=== PATIENT | male | born 1960 | race Caucasian/White ===

== ENCOUNTER 2017-08-23 06:15 | Inpatient (IN) | payer MEDICARE ==
[2017-08-23] VITALS (31 sets, daily range): BP systolic 91–143; BP diastolic 51–95; BMI 33.7
[~2017-08-23] VITALS: Ht 180.3 cm; Wt 109.3 kg
--- NOTE | ~2017-08-23 | HP ---
PATIENT: SONIA CEDEÑO MEDICAL RECORD: [id number] ACCOUNT: [id number] LOCATION:[facility] D231 : 64 ADMISSION DATE: 08/23/17 HISTORY AND PHYSICAL EXAMINATION HISTORY OF PRESENT ILLNESS: This 57-year-old gentleman was transferred in for the transfer service from [place] in [place] for evaluation of renal failure and hypotension. The patient was given IV fluids and started on a dopamine drip. He was transferred to our Emergency Room, stabilization was obtained by the ER physician and admitted to the ICU. Nephrology has been consulted and their recommendations are being followed. PAST MEDICAL HISTORY: Significant for hypertension, GERD, chronic joint pain, depression, arrhythmia, coronary artery disease, hyperlipidemia, chronic back pain, peptic ulcer disease, kidney stones, migraine headaches. ALLERGIES: THE PATIENT IS ALLERGIC TO ASPIRIN. MEDICATIONS: Include Advil, Zoloft, Carafate, and Zantac. SOCIAL HISTORY: The patient does smoke 1-1/2 packs per day. No alcohol use. REVIEW OF SYSTEMS: Indicate the patient has had increasing amount of insect stings from fleas and bed bugs at home. He surgically has had a pacemaker placed and also hernia surgery. No fever or chills. He has had decreased urine output. He has had decrease in blood pressure recently. PHYSICAL EXAMINATION: VITAL SIGNS: At the time of history and physical as below. GENERAL: He is a well-developed, well-nourished 57-year-old obese white male that is sleeping and snoring, able to be aroused, in no acute distress. HEENT: Normocephalic, atraumatic. Pupils are equal, round, reactive to light. Extraocular movements are intact. Oral cavity, oropharynx is clear. Tacky mucous membranes are noted. NECK: No cervical or pharyngeal adenopathy. No nuchal rigidity. LUNGS: Coarse breath sounds heard bilaterally. HEART: Regular rate and rhythm with a I/ systolic ejection murmur. ABDOMEN: Soft, nontender, obese. Positive bowel sounds. No hepatosplenomegaly, no masses. EXTREMITIES: Multiple insect stings, excoriations, and superficial infection is noted. He does have a surgical scar in his left shoulder from pacemaker placement and palpation of the pacemaker is noted. Extremities, no other edema is noted. NEUROLOGIC: He is able to move all 4 extremities and sensation is intact. LABORATORY DATA: Review of his laboratory shows a white count of 14,000, H&H 12 and 39, platelets 175. He has got mildly elevated potassium of 5.1, BUN of 80, and creatinine of 6.2. No previous ones are available. Calcium is low at 8.4, phosphorus is high at 6.9. Magnesium is high at 2.9, proBNP is 492, LDL of 103. EKG shows normal sinus rhythm with a very pronounced T-wave inversion. The patient has evidence of a 25-50 rbc's on urinalysis. ASSESSMENT: At this time: 1. Hypertension. 2. Acute renal failure. HISTORY AND PHYSICAL [id number] SONIA CEDEÑO 3. Insect stings. 4. Leukocytosis. 5. Arrhythmia. 6. Probable sleep apnea. 7. Nicotine dependence. 8. Hypertriglyceridemia. 9. Coronary artery disease. 10. Hematuria. 11. Depression. 12. Chronic pain. PLAN: The patient will be admitted to the ICU. Titrate dopamine and IV fluids as needed for blood pressure. Nephrology consultation and cardiology consultation. Check laboratory appropriately. IV antibiotics and wound care. We will also have the patient on infection control and monitor the patient's status. TRANSINT:[id number] Voice Confirmation ID: [id number] DOCUMENT ID: [id number] SANDRA JIMENEZ MD at 1558 CC: [id number] DICTATION DATE: 08/23/17 1142 PHYSICIAN PRIMARY C[facility] SPORTS MEDICINE: 08/23/17 1211 ADM IN [facility] [address] [place] [address]
--- NOTE | ~2017-08-23 | EC ---
PATIENT:SONIA CEDEÑO DATE OF SERVICE: 08/23/17 SEX: M MEDICAL RECORD: [id number] DATE OF : 64 LOCATION:[facility] D231 AGE OF PATIENT: 57 ADMISSION DATE: 08/23/17 REFERRING PHYSICIAN: INTERPRETING PHYSICIAN: DONNIE VAZQUEZ MD ECHOCARDIOGRAM REPORT ECHO CHARGES 4 ECHO COMPLETE Date: 08/23 CLINICAL DIAGNOSIS: PVC HX OF PACEMAKER ECHOCARDIOGRAPHIC MEASUREMENTS (adult normal given) AC root (d.<3.7cm) 3.7 cm LV Septum d (<1.2 cm> 1.5 cm Valve Excursion 1.5 cm LV Septum (systole) 1.8 cm Left Atria (s.<4.0cm> 3.5 cm LVPW d(<1.2cm) 1.5 cm RV (d.<2.3cm) 3.4 cm LVPW (sytole) 1.7 cm LV diastole(<5.6CM) 4.8 cm MV E-F(>70mm/sec) cm LV systole 3.1 cm LVOT Diameter 1.9 cm MV exc.(>10mm) cm Est.ejection fraction (50-75%) % DOPPLER: LVIT cm/sec A 111 cm/sec E 84.0 cm/sec LA cm/sec RVSP 50 mmHg LVOT 130 cm/sec AOP1/2T m/s Asc. Ao 197 cm/sec RVOT cm/sec RA cm/sec PA cm/sec AV Gradient Peak 15.45mmHg AV Mean 10.0 mmHg AV Area 0 cm MV Gradient Peak 1.7 mmHg MV Mean 4.67 mmHg MV Area 2.32 cm COMMENTS: [employer] Professor: Chris SÁNCHEZ Spindle Frame Carver: 1 Dr. Vazquez TAPE# PACS Pericardial Effusion N DATE OF SERVICE: 08/23/2017 PROCEDURE: Echocardiogram. FINDINGS: 1. Left ventricular chamber size is within normal limits. Left ventricular systolic function is normal. Overall ejection fraction estimated at 60%. 2. Left atrium, right atrium, and right ventricle chamber sizes are within normal limits. 3. Valvular structures have normal structure and motion. ECHOCARDIOGRAM REPORT [id number] SONIA CEDEÑO 4. Doppler interrogation reveals moderate tricuspid regurgitation, no other valvular insufficiency or stenosis. Pulmonary systolic pressure is elevated at 50 mmHg. 5. No evidence of pericardial effusion or left ventricular thrombus. TRANSINT:[id number] Voice Confirmation ID: [id number] DOCUMENT ID: [id number] DONNIE VAZQUEZ MD at 2002 CC: [id number] DICTATION DATE: 08/23/17 1634 CREDIT CHARGE AUTHORIZER: 08/23/17 1731 ADM IN [facility] [address] [place] [address]
--- NOTE | ~2017-08-23 | CN ---
PATIENT NAME:SONIA CEDEÑO MEDICAL RECORD: [id number] : 64 LOCATION:[id number] ADMIT DATE: 08/23/17 ACCOUNT: [id number] CONSULTING PHYSICIAN: DONNIE COFFEY MD REFERRING PHYSICIAN: SANDRA JIMENEZ MD DATE OF CONSULTATION: 08/23/2017 ADMITTING DIAGNOSES: 1. Acute renal failure. 2. Coronary artery disease. 3. Previous percutaneous transluminal coronary angioplasty stent. 4. Abnormal ECG, left bundle branch block. 5. Hypertension. HISTORY OF PRESENT ILLNESS: This is a gentleman who presents with fatigue and weakness, was found to be in acute renal failure with creatinine of 8.2. He has a cardiac history, previous cardiac stents, hypertension, and his EKG has a left bundle branch block. This is no change from previous EKGs. He is having no anginal symptomatology, no cardiac issues at this time. PHYSICAL EXAMINATION: GENERAL APPEARANCE: Well-nourished, well-developed, appears stated age. Level of distress, comfortable. PSYCHIATRIC: Mental status, alert, normal affect. Orientation, oriented to time, place and person. EYES: Lids and conjunctiva, noninjected. No discharge, no pallor. ENT: Lips, teeth, gums, normal dentition. Oropharynx, no cyanosis, no pallor. NECK: Carotid arteries, bilateral normal upstroke, no bruits, no thrills. JUGULAR VEINS: No jugular venous pressure or distention. CERVICAL LYMPH NODES: Nontender, nonenlarged. THYROID: Not enlarged. Nontender. No nodules. LUNGS: Respiratory effort, unlabored. CHEST: Normal curvature. No thoracic deformity. No chest wall tenderness. Percussion, resonant. Auscultation, clear. No wheezes, no rales, no rhonchi. CARDIOVASCULAR: Precordial exam, nondisplaced. No heaves or pericardial thrills. Rate and rhythm, regular. Heart sounds, normal S1, normal S2. No S3, no gallop, no rub. Systolic murmur, not heard. Diastolic murmur, not heard. EXTREMITIES: No cyanosis, no edema. Peripheral pulses, full and equal in all extremities, except as noted. No bruits appreciated. ABDOMEN: Soft, nondistended. Normal aorta. No bruit. Nontender. No masses. Liver, nontender, no hepatomegaly. Spleen, nontender, no splenomegaly. MUSCULOSKELETAL: No joint tenderness. No joint swelling. No erythema. NEUROLOGICAL: Normal gait, normal strength, normal tone. SKIN: Warm and dry. REVIEW OF SYSTEMS: The patient reports easy bruising but reports no swollen glands. The patient reports no fever, no night sweats, no significant weight gain, no significant weight loss. No significant exercise tolerance. The patient reports no dry eyes, no irritation, no vision change. Patient reports no difficulty hearing and no ear pain. Patient reports no frequent nose bleeds or nose and sinus problems. Patient reports on arm pain on exertion. No shortness of breath while lying down. No history of heart murmur. Patient reports no cough, no wheezing or coughing up blood. Patient reports no abdominal pain, no vomiting. Normal appetite. No diarrhea and not vomiting blood. No nausea and no constipation. Patient reports no incontinence. No CONSULT REPORT [id number] SONIA CEDEÑO difficulty urinating. No hematuria. No increased frequency. Patient reports no muscle aches. No weakness, no arthralgias, no back pain. No swelling of the extremities. Patient reports no abnormal mole, no jaundice, no rashes. Reports no loss of consciousness. No weakness and no numbness. No seizures, dizziness, or headaches. The patient reports no depression, no sleep disturbance, feeling safe in a relationship and no alcohol abuse. Patient reports on fatigue. Reports no runny nose or sinus pressure. No itching, no hives, and no frequent sneezing. OVERALL IMPRESSION: Coronary artery disease, stable. No ongoing symptomatology of ischemia. EKG is unchanged with a left bundle branch block. Echocardiogram was performed with normal ejection fraction, no critical valvular disease. At this time, no other cardiac workup or treatment is necessary. TRANSINT:[id number] Voice Confirmation ID: [id number] DOCUMENT ID: [id number] DONNIE COFFEY MD at 2002 CC: [id number] DICTATION DATE: 08/23/171726 PASTE MIXER LIQUID: 08/23/17 1804 [place] [address]
[2017-08-23] MEDS ORDERED: ADVIL200 MG PO (06:40)
[2017-08-23] MEDS ORDERED: ZOLOFT100 MG PO (06:40)
[2017-08-23] MEDS ORDERED: ZANTAC150 MG (06:41)
[2017-08-23] MEDS ORDERED: CARAFATE1 G PO (06:41)
[2017-08-23 07:56] LABS: APPEARANCE CLEAR (CLEAR); BILIRUBIN NEGATIVE (NEGATIVE); COLOR YELLOW (YELLOW); GLUCOSE NEGATIVE (NEGATIVE); KETONE NEGATIVE (NEGATIVE); NITRITE NEGATIVE (NEGATIVE); PROTEIN 1+ mg/dL (NEGATIVE); RED CELLS - URINE 25-50 /hpf (0-5); SPECIFIC GRAVITY 1.015 (1.005-1.020); UROBILINOGEN NORMAL (NORMAL)
[2017-08-23 07:57] LABS: BACTERIA FEW /hpf (NONE SEEN); WHITE CELLS - URINE 0-5 /hpf (0-5)
[2017-08-23 08:00] LABS: EPITHELIAL CELLS 0-5 /hpf (0-5); MUCUS <1+ /lpf (NONE SEEN)
[2017-08-23 08:03] LABS: HYALINE CAST 0-5 /lpf (NONE SEEN)
[2017-08-23 10:18] LABS: BASOPHILS 0.1 % (0-2); EOSINOPHILS 0.6 % (0-7); HEMATOCRIT 39.2 % (42.0-54.0); HEMOGLOBIN 12.8 g/dL (13.5-17.5); IMMATURE GRANULOCYTES 1.1 % (0-5); LYMPHOCYTES 6.1 % (15-50); MCH 31.4 pg (26.0-34.0); MCHC 32.7 g/dL (31.0-37.0); MCV 96.1 fL (80.0-100.0); MEAN PLATELET VOLUME 11.3 fL (7.4-10.4); MONOCYTES 9.6 % (2-11); NEUTROPHILS 82.5 % (40-80); PLATELET COUNT 175 10x3/uL (130-400); RBC 4.08 10x6/uL (4.20-6.10); RDW 13.2 % (11.5-14.5); WBC 14.3 10x3/uL (4.8-10.8)
[2017-08-23 10:32] LABS: COMPLEMENT C4 22.9 mg/dL (17.4-52.2)
[2017-08-23 10:35] LABS: LDL-HDL RATIO 4.9 ratio (1.5-3.5); MAGNESIUM - SERUM 2.9 mg/dL (1.8-2.4); PHOSPHOROUS 6.9 mg/dL (2.5-4.9)
[2017-08-23 10:36] LABS: ALBUMIN 3.3 g/dL (3.4-5.0); ANION GAP 23.7 mmol/L (8-16); BILIRUBIN - TOTAL 0.15 mg/dL (0.2-1.3); CALCIUM 8.4 mg/dL (8.5-10.1); CARBON DIOXIDE 13.4 mmol/L (21.0-32.0); CREATININE - SERUM 6.2 mg/dL (0.6-1.3); POTASSIUM - SERUM 5.1 mmol/L (3.5-5.1); PROTEIN - SERUM 6.7 g/dL (6.4-8.2)
[2017-08-23 11:54] LABS: UDS - AMPHET NEGATIVE QUAL (NEGATIVE); UDS - BARB NEGATIVE QUAL (NEGATIVE); UDS - BENZO NEGATIVE QUAL (NEGATIVE); UDS - COCAINE NEGATIVE QUAL (NEGATIVE); UDS - OPIATE NEGATIVE QUAL (NEGATIVE); UDS - PCP NEGATIVE QUAL (NEGATIVE); UDS - THC NEGATIVE QUAL (NEGATIVE)
[2017-08-23 19:28] LABS: CKMB 8.2 U/L (0.0-3.6); CREATINE KINASE 97 UL (21-232); TROPONIN-I < 0.017 ng/mL (0.000-0.060)
[2017-08-24] VITALS (30 sets, daily range): BP systolic 99–181; BP diastolic 60–851; Ht 180.3 cm; Wt 109.3 kg
[2017-08-24 05:15] LABS: BASOPHILS 0.1 % (0-2); EOSINOPHILS 0.7 % (0-7); HEMOGLOBIN 11.4 g/dL (13.5-17.5); IMMATURE GRANULOCYTES 0.6 % (0-5); LYMPHOCYTES 8.3 % (15-50); MCH 30.8 pg (26.0-34.0); MCHC 32.6 g/dL (31.0-37.0); MCV 94.6 fL (80.0-100.0); MEAN PLATELET VOLUME 11.4 fL (7.4-10.4); MONOCYTES 8.8 % (2-11); NEUTROPHILS 81.5 % (40-80); PLATELET COUNT 205 10x3/uL (130-400); RDW 13.2 % (11.5-14.5)
[2017-08-24 05:25] LABS: WBC 9.5 10x3/uL (4.8-10.8)
[2017-08-24 05:43] LABS: ALKALINE PHOSPHATASE 72 U/L (46-116); ALT (SGPT) 19 U/L (10-68); BILIRUBIN - TOTAL 0.17 mg/dL (0.2-1.3); CALCIUM 7.5 mg/dL (8.5-10.1); CHLORIDE - SERUM 114 mmol/L (98-107); CKMB 5.8 U/L (0.0-3.6); CREATINE KINASE 68 UL (21-232); GLUCOSE 114 mg/dL (74-106); MAGNESIUM - SERUM 2.2 mg/dL (1.8-2.4); PRO BNP 709 pg/mL (0-125); PROTEIN - SERUM 6.8 g/dL (6.4-8.2); SODIUM 147 mmol/L (136-145); THYROID STIMULATING HORMONE 0.17 uIU/mL (0.36-3.74); TROPONIN-I < 0.017 ng/mL (0.000-0.060)
[2017-08-24 05:46] LABS: CALC OSMOLALITY 308 mosm/kg (275-300); CARBON DIOXIDE 18.6 mmol/L (21.0-32.0); CREATININE - SERUM 2.8 mg/dL (0.6-1.3); PHOSPHOROUS 4.6 mg/dL (2.5-4.9); POTASSIUM - SERUM 3.6 mmol/L (3.5-5.1); UREA NITROGEN 56 mg/dL (7-18); eGFR NON AFRICAN AMERICAN 25 mL/min (90-120)
[2017-08-25] VITALS (12 sets, daily range): BP systolic 120–156; BP diastolic 59–112
[2017-08-25 06:27] LABS: BASOPHILS 0.2 % (0-2); EOSINOPHILS 0.8 % (0-7); HEMATOCRIT 34.3 % (42.0-54.0); HEMOGLOBIN 11.2 g/dL (13.5-17.5); IMMATURE GRANULOCYTES 0.3 % (0-5); LYMPHOCYTES 11.6 % (15-50); MCH 30.9 pg (26.0-34.0); MCHC 32.7 g/dL (31.0-37.0); MCV 94.8 fL (80.0-100.0); MEAN PLATELET VOLUME 10.5 fL (7.4-10.4); MONOCYTES 10.5 % (2-11); NEUTROPHILS 76.6 % (40-80); PLATELET COUNT 223 10x3/uL (130-400); RBC 3.62 10x6/uL (4.20-6.10); RDW 13.5 % (11.5-14.5); WBC 9.8 10x3/uL (4.8-10.8)
[2017-08-25 06:59] LABS: ALBUMIN 3.1 g/dL (3.4-5.0); ANION GAP 11.9 mmol/L (8-16); BILIRUBIN - TOTAL 0.24 mg/dL (0.2-1.3); CALCIUM 8.2 mg/dL (8.5-10.1); CARBON DIOXIDE 26.4 mmol/L (21.0-32.0); CREATININE - SERUM 1.5 mg/dL (0.6-1.3); POTASSIUM - SERUM 3.3 mmol/L (3.5-5.1); THYROID STIMULATING HORMONE 0.91 uIU/mL (0.36-3.74)
[2017-08-26 04:00] VITALS: BP 118/73
[2017-08-26 05:27] LABS: BASOPHILS 0.2 % (0-2); EOSINOPHILS 1.3 % (0-7); HEMATOCRIT 33.3 % (42.0-54.0); HEMOGLOBIN 11.1 g/dL (13.5-17.5); IMMATURE GRANULOCYTES 0.3 % (0-5); MCH 31.4 pg (26.0-34.0); MCHC 33.3 g/dL (31.0-37.0); MCV 94.3 fL (80.0-100.0); MEAN PLATELET VOLUME 10.6 fL (7.4-10.4); MONOCYTES 13.4 % (2-11); NEUTROPHILS 67.8 % (40-80); PLATELET COUNT 221 10x3/uL (130-400); RBC 3.53 10x6/uL (4.20-6.10); RDW 13.3 % (11.5-14.5); WBC 10.2 10x3/uL (4.8-10.8)
[2017-08-26 05:38] LABS: ANION GAP 15.4 mmol/L (8-16); CALCIUM 8.3 mg/dL (8.5-10.1); CARBON DIOXIDE 24.9 mmol/L (21.0-32.0); CREATININE - SERUM 1.2 mg/dL (0.6-1.3); POTASSIUM - SERUM 3.3 mmol/L (3.5-5.1)
[2017-08-26 08:10] VITALS: BP 145/71
[2017-08-26 11:31] VITALS: BP 144/84
[2017-08-26 12:11] LABS: ANA REFLEX - DBL STRANDED DNA <1 IU/mL (0-9); ANA REFLEX - DIRECT Negative (Negative)
[2017-08-26 15:57] VITALS: BP 138/77
[2017-08-26 16:13] LABS: SPE - A/G RATIO 1.1 (0.7-1.7); SPE - ALBUMIN 3.2 g/dL (2.9-4.4); SPE - ALPHA-1 GLOBULIN 0.3 g/dL (0.0-0.4); SPE - ALPHA-2 GLOBULIN 0.9 g/dL (0.4-1.0); SPE - BETA GLOBULIN 0.9 g/dL (0.7-1.3); SPE - M-SPIKE Not Observed g/dL (Not Observed); SPE - TOTAL PROTEIN 6.2 g/dL (6.0-8.5)
[2017-08-26 17:10] LABS: UPE RAND - ALBUMIN 12.5 % (()); UPE RAND - ALPHA 1 GLOBULIN 11.8 % (()); UPE RAND - ALPHA 2 GLOBULIN 23.6 % (()); UPE RAND - BETA GLOBULIN 27.4 % (()); UPE RAND - GAMMA GLOBULIN 24.7 % (())
[2017-08-26 20:00] VITALS: BP 144/79
[2017-08-27 04:00] VITALS: BP 131/53
[2017-08-27 05:38] LABS: BASOPHILS 0.2 % (0-2); EOSINOPHILS 1.5 % (0-7); HEMATOCRIT 32.8 % (42.0-54.0); HEMOGLOBIN 10.9 g/dL (13.5-17.5); IMMATURE GRANULOCYTES 0.6 % (0-5); LYMPHOCYTES 14.5 % (15-50); MCH 31.1 pg (26.0-34.0); MCHC 33.2 g/dL (31.0-37.0); MCV 93.7 fL (80.0-100.0); MEAN PLATELET VOLUME 10.4 fL (7.4-10.4); MONOCYTES 12.4 % (2-11); NEUTROPHILS 70.8 % (40-80); PLATELET COUNT 213 10x3/uL (130-400); RDW 13.1 % (11.5-14.5)
[2017-08-27 06:10] LABS: ANION GAP 12.7 mmol/L (8-16); CALCIUM 8.6 mg/dL (8.5-10.1); CARBON DIOXIDE 25.5 mmol/L (21.0-32.0); CREATININE - SERUM 1.3 mg/dL (0.6-1.3); POTASSIUM - SERUM 3.2 mmol/L (3.5-5.1)
[2017-08-27 08:32] VITALS: BP 125/75
[2017-08-27 11:31] VITALS: BP 143/85
== END 2017-08-27 18:34 | disposition home or self-care (01) | DRG 683 ==
LOC: D.ER 06:15 → D.ICU 07:30 → D.M2 07:30
PROVIDERS: Family Medicine; Internal Medicine Nephrology
DX: N17.9 Acute kidney failure, unspecified (principal); F17.203 Nicotine dependence unspecified, with withdrawal; L03.113 Cellulitis of right upper limb; L03.114 Cellulitis of left upper limb; E87.2 Acidosis; I12.9 Hypertensive chronic kidney disease with stage 1 through stage 4 chronic kidney disease, or unspecified chronic kidney disease; N18.9 Chronic kidney disease, unspecified; I25.10 Atherosclerotic heart disease of native coronary artery without angina pectoris; I44.7 Left bundle-branch block, unspecified; E78.5 Hyperlipidemia, unspecified; F41.8 Other specified anxiety disorders; K21.9 Gastro-esophageal reflux disease without esophagitis; E87.6 Hypokalemia; D50.9 Iron deficiency anemia, unspecified; G89.29 Other chronic pain; I95.9 Hypotension, unspecified; T63.481A Toxic effect of venom of other arthropod, accidental (unintentional), initial encounter; T46.5X1A Poisoning by other antihypertensive drugs, accidental (unintentional), initial encounter; Z95.5 Presence of coronary angioplasty implant and graft; J44.9 Chronic obstructive pulmonary disease, unspecified; E66.9 Obesity, unspecified; Z68.33 Body mass index [BMI] 33.0-33.9, adult